=== PATIENT | male | born 1940 | race Native Hawaiian/Other Pacific Islander ===

== ENCOUNTER 2016-12-04 09:13 | Outpatient (CLI) | payer OTHER ==
[~2016-12-04 09:13] MED LIST: ASA LOW DOSE81 MG PO; CADUET10 MG/10 M OR; COZAAR100 MG PO; FORTAMET1000 MG PO; FORTAMET500 MG PO; GLIP5TAB65 PO; INSU100I2 SC; LEVO0.0529 PO; LEXAPRO10 MG PO; LIPITOR10 MG PO; METF500T PO; METFTAB PO; OMEPRAZOLE20 M1 OR; OMEPRAZOLE20 M1 PO
[2016-12-04 09:31] LABS: PLATELET COUNT 170 K/uL (142-355)
[2016-12-04 10:36] LABS: POTASSIUM 4.5 mmol/L (3.6-5.2)
[2016-12-15] MEDS ORDERED: LANTUS100 MG/ML SC (00:17)
[2016-12-15] MEDS ORDERED: HUMULIN R1 ML IJ (00:17)
== END 2016-12-04 22:57 | disposition home or self-care (01) ==
LOC: LABW 09:13
PROVIDERS: Internal Medicine
DX: E11.9 Type 2 diabetes mellitus without complications (principal)
CPT/HCPCS: 36415; 80053; 80061; 81000; 82043; 82570; 83036; 84443; 85027

== ENCOUNTER 2016-12-06 09:13 | Outpatient (CLI) | payer OTHER ==
[2016-12-15] MEDS ORDERED: HUMULIN R1 ML IJ (00:17)
[2016-12-15] MEDS ORDERED: LANTUS100 MG/ML SC (00:17)
== END 2016-12-06 19:12 | disposition home or self-care (01) ==
LOC: US 09:13
DX: N18.9 Chronic kidney disease, unspecified (principal)

== ENCOUNTER 2016-12-09 17:42 | Inpatient (IN) | payer OTHER ==
[~2016-12-09] VITALS: Ht 172.7 cm; Wt 93.6 kg
[2016-12-09 17:48] VITALS: BP 174/78; TEMP 98
[2016-12-09 18:16] LABS: PLATELET COUNT 231 K/uL (142-355)
[2016-12-09 18:30] LABS: POTASSIUM 4.3 mmol/L (3.6-5.2)
[2016-12-09 21:59] VITALS: BP 160/94; TEMP 97.7; Ht 172.7 cm; Wt 93.6 kg
[2016-12-09] MEDS ORDERED: HYDRALAZINE25 MG PO (22:24)
[2016-12-09] MEDS ORDERED: CARV12.5 PO (22:25)
[2016-12-09] MEDS ORDERED: GABA300C2 PO (22:25)
[2016-12-09] MEDS ORDERED: AMBIEN5 MG PO (22:26)
[2016-12-09] MEDS ORDERED: VALSARTAN320 MG PO (22:27)
[2016-12-09] MEDS ORDERED: UNITH DIRECT75 MCG PO (22:27)
[2016-12-09] MEDS ORDERED: CADUET10 MG/10 M PO (22:28)
[2016-12-09] MEDS ORDERED: EQ ASPIRIN325 M1 PO (22:29)
[2016-12-10 00:24] VITALS: BP 168/71; TEMP 97.8
[2016-12-10 04:00] VITALS: BP 160/63; TEMP 98.1
[2016-12-10 08:13] VITALS: BP 171/66; TEMP 98.7
[2016-12-10 09:32] LABS: PLATELET COUNT 191 K/uL (142-355)
[2016-12-10 09:41] LABS: POTASSIUM 4.6 mmol/L (3.6-5.2)
[2016-12-10 12:00] VITALS: BP 166/63; TEMP 98.1
[2016-12-10 16:00] VITALS: BP 142/51; TEMP 98.2
[2016-12-10 20:00] VITALS: BP 169/82; TEMP 97.9
[2016-12-11] VITALS (7 sets, daily range): BP systolic 129–194; BP diastolic 50–67; TEMP 97.6–98.1
[2016-12-11 09:36] LABS: PLATELET COUNT 189 K/uL (142-355)
[2016-12-12 01:03] LABS: POTASSIUM 4.9 mmol/L (3.6-5.2)
[2016-12-12 01:19] LABS: PLATELET COUNT 188 K/uL (142-355)
[2016-12-12 04:00] VITALS: BP 137/63; TEMP 98
[2016-12-12 08:00] VITALS: BP 168/68; TEMP 97.8
[2016-12-12 12:00] VITALS: BP 122/82; TEMP 97.8
[2016-12-15] MEDS ORDERED: LANTUS100 MG/ML SC (00:17)
[2016-12-15] MEDS ORDERED: HUMULIN R1 ML IJ (00:17)
== END 2016-12-12 15:25 | disposition home or self-care (01) | DRG 291 ==
LOC: ED 17:42 → MED/SURG 19:00
PROVIDERS: Emergency Medicine
DX: I50.1 Left ventricular failure, unspecified (principal); J18.0 Bronchopneumonia, unspecified organism; J90 Pleural effusion, not elsewhere classified; E11.9 Type 2 diabetes mellitus without complications; J44.9 Chronic obstructive pulmonary disease, unspecified
CPT/HCPCS: 36415; 36600; 80048; 80053; 82805; 82948; 83880; 85027; 87040; 93306; 94640; 94664; 94668; 94760; 96372; J0456; J0696; J1650; J1940; J2794; J2930; J3490

== ENCOUNTER 2016-12-23 10:41 | Emergency (ER) | payer OTHER ==
[~2016-12-23] VITALS: Ht 170.2 cm; Wt 91.6 kg
[~2016-12-23 10:41] MED LIST changes: +AMBIEN5 MG PO; +CADUET10 MG/10 M PO; +CARV12.5 PO; +EQ ASPIRIN325 M1 PO; +GABA300C2 PO; +HUMULIN R1 ML IJ; +HYDRALAZINE25 MG PO; +LANTUS100 MG/ML SC; +UNITH DIRECT75 MCG PO; +VALSARTAN320 MG PO
[2016-12-23 12:04] LABS: PLATELET COUNT 183 K/uL (142-355)
[2016-12-23 12:33] LABS: POTASSIUM 3.9 mmol/L (3.6-5.2); SODIUM 141 mmol/L (136-145)
[2016-12-23 16:11] VITALS: BP 185/79; TEMP 98.2
== END 2016-12-23 16:11 | disposition home or self-care (01) ==
LOC: ED 10:41
PROVIDERS: Emergency Medicine
DX: I10 Essential (primary) hypertension (principal)
CPT/HCPCS: 80048; 81000; 82550; 84484; 85027; 93005; 96365; 99284

== ENCOUNTER 2016-12-26 10:12 | Observation (INO) | payer OTHER ==
[~2016-12-26] VITALS: Ht 170.2 cm; Wt 91.3 kg
[2016-12-26 12:01] VITALS: BP 150/54; TEMP 97.6; Ht 170.2 cm; Wt 91.3 kg
[2016-12-26 13:33] LABS: PLATELET COUNT 184 K/uL (142-355)
[2016-12-26] MEDS ORDERED: FURO40TA93 PO (14:37)
[2016-12-26] MEDS ORDERED: POTA20TA4 PO (14:38)
[2016-12-26] MEDS ORDERED: AMLO2.5T PO (14:39)
[2016-12-26] MEDS ORDERED: GLIP10TA55 PO (14:40)
[2016-12-26 16:00] VITALS: BP 170/65; TEMP 98.1
[2016-12-26 20:00] VITALS: BP 144/61; TEMP 98.1
[2016-12-27] VITALS: BP 150/43; TEMP 97.8
[2016-12-27 04:00] VITALS: BP 138/66; BP 158/66; TEMP 98.1
[2016-12-27 04:48] LABS: POTASSIUM 4.3 mmol/L (3.6-5.2)
[2016-12-27 05:03] LABS: PLATELET COUNT 157 K/uL (142-355)
[2016-12-27 08:08] VITALS: BP 161/70; TEMP 97.9
[2016-12-27 12:00] VITALS: BP 165/72; TEMP 97.7
== END 2016-12-27 16:25 | disposition home or self-care (01) ==
LOC: MED/SURG 10:12
PROVIDERS: Emergency Medicine; ADMIT Internal Medicine
DX: E11.649 Type 2 diabetes mellitus with hypoglycemia without coma (principal); Z79.4 Long term (current) use of insulin; J44.9 Chronic obstructive pulmonary disease, unspecified; D72.828 Other elevated white blood cell count; E11.42 Type 2 diabetes mellitus with diabetic polyneuropathy; E03.8 Other specified hypothyroidism; K21.9 Gastro-esophageal reflux disease without esophagitis; M15.8 Other polyosteoarthritis
CPT/HCPCS: 36415; 36591; 80053; 81000; 82948; 83735; 83880; 85027; 93005; 94760; 96365; 96366; 96374; 96375; 99220; G0378; G0379; J1940; J7060

== ENCOUNTER 2017-01-25 09:20 | Outpatient (CLI) | payer OTHER ==
[~2017-01-25 09:20] MED LIST changes: +AMLO2.5T PO; +FURO40TA93 PO; +GLIP10TA55 PO; +POTA20TA4 PO
== END 2017-01-25 19:15 | disposition home or self-care (01) ==
LOC: RAD 09:20
DX: R13.10 Dysphagia, unspecified (principal); R13.12 Dysphagia, oropharyngeal phase

== ENCOUNTER 2017-01-29 08:18 | Outpatient (CLI) | payer OTHER ==
[~2017-01-29] VITALS: Ht 170.2 cm; Wt 88.5 kg
== END 2017-01-29 19:29 | disposition home or self-care (01) ==
LOC: NM 08:18
DX: I42.9 Cardiomyopathy, unspecified (principal); I10 Essential (primary) hypertension; E78.5 Hyperlipidemia, unspecified
CPT/HCPCS: A9500; J2785

== ENCOUNTER 2017-02-16 17:01 | Emergency (ER) | payer OTHER ==
[~2017-02-16] VITALS: Ht 170.2 cm; Wt 87.5 kg
[2017-02-16 21:10] LABS: PLATELET COUNT 168 K/uL (142-355)
[2017-02-16 21:50] LABS: POTASSIUM 4.6 mmol/L (3.6-5.2)
[2017-02-16 23:49] VITALS: BP 168/62; TEMP 98.1
== END 2017-02-16 23:51 | disposition home or self-care (01) ==
LOC: ED 17:01
PROVIDERS: Specialist
DX: M54.12 Radiculopathy, cervical region (principal); R00.8 Other abnormalities of heart beat
CPT/HCPCS: 36415; 80053; 81000; 82550; 84484; 85027; 93005; 99284

== ENCOUNTER 2017-06-04 06:05 | Emergency (ER) | payer OTHER ==
[~2017-06-04] VITALS: Ht 170.2 cm; Wt 88.9 kg
[2017-06-04 06:32] VITALS: BP 186/90; TEMP 98.3
== END 2017-06-04 06:33 | disposition left against medical advice (07) ==
LOC: ED 06:05
DX: I10 Essential (primary) hypertension (principal)
CPT/HCPCS: 99281

== ENCOUNTER 2017-06-04 07:37 | Emergency (ER) | payer OTHER ==
[~2017-06-04] VITALS: Ht 170.2 cm; Wt 88.5 kg
[2017-06-04 07:40] VITALS: BP 146/60; TEMP 98.4
== END 2017-06-04 08:00 | disposition home or self-care (01) ==
LOC: ED 07:37
DX: I10 Essential (primary) hypertension (principal)
CPT/HCPCS: 99281

== ENCOUNTER 2017-06-27 08:15 | Outpatient (CLI) | payer OTHER ==
[2017-06-27 08:50] LABS: PLATELET COUNT 188 K/uL (142-355)
[2017-06-27 09:15] LABS: POTASSIUM 4.6 mmol/L (3.6-5.2)
== END 2017-06-27 09:15 | disposition home or self-care (01) ==
LOC: LABW 08:15
PROVIDERS: Internal Medicine
DX: E11.9 Type 2 diabetes mellitus without complications (principal)
CPT/HCPCS: 36415; 80053; 80061; 81000; 82043; 82570; 83036; 84439; 84443; 85027

== ENCOUNTER 2017-10-07 16:40 | Outpatient (CLI) | payer OTHER ==
[2017-10-07 20:17] LABS: PLATELET COUNT 180 K/uL (142-355)
== END 2017-10-07 19:07 | disposition home or self-care (01) ==
LOC: LAB 16:40
PROVIDERS: Physician Assistant
DX: I50.9 Heart failure, unspecified (principal)
CPT/HCPCS: 80053; 83880; 85027

== ENCOUNTER 2017-10-21 09:43 | Outpatient (CLI) | payer OTHER | END 2017-10-21 10:45 | disposition home or self-care (01) | LOC: LABW 09:43 | PROVIDERS: Nurse Practitioner Adult Health | DX: E78.2 Mixed hyperlipidemia (principal); Z79.899 Other long term (current) drug therapy; Z51.81 Encounter for therapeutic drug level monitoring | CPT/HCPCS: 36415; 80061; 80076 ==

== ENCOUNTER 2017-10-22 14:19 | Observation (INO) | payer OTHER ==
[~2017-10-22] VITALS: Ht 172.7 cm; Wt 89.5 kg
[2017-10-22 14:24] VITALS: BP 178/68; TEMP 98.7
[2017-10-22 15:02] LABS: PLATELET COUNT 173 K/uL (142-355)
[2017-10-22 16:29] VITALS: BP 184/68
[2017-10-22 17:44] VITALS: BP 178/68; TEMP 97.7; Ht 172.7 cm; Wt 89.5 kg
[2017-10-22 20:00] VITALS: BP 186/70; TEMP 98
[2017-10-23] VITALS: BP 178/73; TEMP 98.4
[2017-10-23 04:00] VITALS: BP 172/77; TEMP 98.2
[2017-10-23 06:11] LABS: PLATELET COUNT 173 K/uL (142-355)
[2017-10-23 06:14] LABS: POTASSIUM 5.4 mmol/L (3.6-5.2)
[2017-10-23 08:00] VITALS: BP 180/83; TEMP 98
[2017-10-23 12:00] VITALS: BP 132/50; TEMP 98.4
[2017-10-23 16:00] VITALS: BP 135/60; BP 155/60; TEMP 98.3
[2017-10-23 20:00] VITALS: BP 166/70; TEMP 98.2
[2017-10-24] VITALS: BP 146/63; TEMP 98
[2017-10-24 04:00] VITALS: BP 161/69; TEMP 98.2
[2017-10-24 05:09] LABS: PLATELET COUNT 198 K/uL (142-355)
[2017-10-24 05:24] LABS: POTASSIUM 4.7 mmol/L (3.6-5.2)
[2017-10-24 08:00] VITALS: BP 168/80; TEMP 97.9
[2017-10-24 12:00] VITALS: BP 167/58; TEMP 98
[2017-10-24 16:00] VITALS: BP 135/54; TEMP 98.1
[2017-10-24 20:00] VITALS: BP 158/83; TEMP 98.1
[2017-10-25] VITALS: BP 137/52; TEMP 98.2
[2017-10-25 04:00] VITALS: BP 150/80; TEMP 97.7
[2017-10-25 05:51] LABS: PLATELET COUNT 190 K/uL (142-355)
[2017-10-25 06:14] LABS: POTASSIUM 4.5 mmol/L (3.6-5.2)
[2017-10-25 08:00] VITALS: BP 165/67; TEMP 98.2
--- NOTE | 2017-10-25 09:00 | NUR ---
DISCHARGE ORDERS RECEIVED. PRESCRIPTIONS CALLED IN TO [facility] AND FOLLOW APPOINTMENTS MADE. PATIENT WILL BE WAITING UNTIL THIS AFTERNOON FOR A RIDE HOME WHEN HIS SON GETS OFF WORK.
[2017-10-25 12:05] VITALS: BP 134/53; TEMP 98.2
--- NOTE | 2017-10-25 15:30 | NUR ---
PATIENT HAS SIGNED ALL DISCHARGE ORDERS. IV REMOVED, BANDAID APPLIED. PATIENT READY TO GO HOME AND AWAITING HIS SON TO COME AND TAKE HIM HOME.
[2017-10-25 15:53] VITALS: BP 155/52; TEMP 98.4
--- NOTE | 2017-10-25 17:00 | NUR ---
PATIENT ESCORTED TO HOSPITAL EXIT VIA WHEELCHAIR AND DISCHARGED HOME WITH SON IN STABLE CONDITION.
== END 2017-10-25 17:03 | disposition home or self-care (01) ==
LOC: ED 14:19 → MED/SURG 16:15
PROVIDERS: Emergency Medicine; ADMIT Internal Medicine
DX: J96.91 Respiratory failure, unspecified with hypoxia (principal); I50.9 Heart failure, unspecified; J16.8 Pneumonia due to other specified infectious organisms; J90 Pleural effusion, not elsewhere classified; E11.40 Type 2 diabetes mellitus with diabetic neuropathy, unspecified; J44.9 Chronic obstructive pulmonary disease, unspecified; Z79.4 Long term (current) use of insulin; I10 Essential (primary) hypertension; E87.5 Hyperkalemia; E83.41 Hypermagnesemia; E78.2 Mixed hyperlipidemia; Z79.899 Other long term (current) drug therapy; Z51.81 Encounter for therapeutic drug level monitoring
CPT/HCPCS: 36415; 36600; 80053; 80061; 80076; 81000; 82550; 82805; 82948; 83036; 83735; 83880; 84443; 84484; 85027; 85379; 87040; 93005; 93306; 94664; 94760; 96367; 96372; 96374; 96375; 99220; 99284; G0378; J0696; J1100; J1650; J1940; J1956; J2930; J3490

== ENCOUNTER 2017-10-30 10:16 | Outpatient (CLI) | payer OTHER ==
[2017-10-30 10:47] LABS: POTASSIUM 5.3 mmol/L (3.6-5.2)
== END 2017-10-30 11:20 | disposition home or self-care (01) ==
LOC: LABW 10:16
PROVIDERS: Nurse Practitioner Adult Health
DX: I10 Essential (primary) hypertension (principal); E11.9 Type 2 diabetes mellitus without complications
CPT/HCPCS: 36415; 80048

== ENCOUNTER 2018-01-09 15:56 | Outpatient (CLI) | payer OTHER ==
[2018-01-09 17:17] LABS: PLATELET COUNT 207 K/uL (142-355)
[2018-01-09 17:31] LABS: POTASSIUM 4.6 mmol/L (3.6-5.2)
== END 2018-01-09 17:00 | disposition home or self-care (01) ==
LOC: LABW 15:56
PROVIDERS: Internal Medicine
DX: E11.69 Type 2 diabetes mellitus with other specified complication (principal)
CPT/HCPCS: 36415; 80053; 80061; 82306; 82728; 83036; 83540; 83550; 83970; 84100; 85027

== ENCOUNTER 2018-02-23 09:52 | Emergency (ER) | payer OTHER ==
[~2018-02-23] VITALS: Ht 167.6 cm; Wt 89.8 kg
[2018-02-23 09:56] VITALS: BP 104/36; TEMP 97.5
[2018-02-23 10:43] LABS: PLATELET COUNT 144 K/uL (142-355)
[2018-02-23] MEDS ORDERED: PROTONIX20 MG PO (10:43)
[2018-02-23] MEDS ORDERED: GLIP10TA55 PO (10:55)
[2018-02-23] MEDS ORDERED: LABETALOL100 MG PO (10:56)
[2018-02-23 10:58] LABS: PARTIAL THROMBOPLASTIN TIME 27.9 SECONDS (24.5-33.6)
[2018-02-23 11:10] LABS: SODIUM 138 mmol/L (136-145)
[2018-02-23 11:17] LABS: POTASSIUM 6.7 mmol/L (3.6-5.2)
== END 2018-02-23 11:55 | disposition short-term general hospital (02) ==
LOC: ED 09:52
DX: R00.1 Bradycardia, unspecified (principal); I95.89 Other hypotension; N17.9 Acute kidney failure, unspecified; J44.9 Chronic obstructive pulmonary disease, unspecified; I50.9 Heart failure, unspecified; I48.91 Unspecified atrial fibrillation; I44.7 Left bundle-branch block, unspecified
CPT/HCPCS: 80053; 82550; 83880; 84443; 84484; 85027; 85610; 85730; 93005; 96361; 96365; 96375; 99284; J0461; J1265

== ENCOUNTER 2018-02-23 11:57 | Outpatient (CLI) | payer OTHER ==
[~2018-02-23 11:57] MED LIST changes: +LABETALOL100 MG PO; +PROTONIX20 MG PO
== END 2018-02-23 13:18 | disposition short-term general hospital (02) ==
LOC: AMB 11:57
DX: R00.1 Bradycardia, unspecified (principal); I95.89 Other hypotension; N17.9 Acute kidney failure, unspecified; J44.9 Chronic obstructive pulmonary disease, unspecified; I50.9 Heart failure, unspecified; I48.91 Unspecified atrial fibrillation; I44.7 Left bundle-branch block, unspecified
CPT/HCPCS: A0425; A0427

== ENCOUNTER 2018-03-12 19:17 | Inpatient (IN) | payer OTHER ==
[~2018-03-12] VITALS: Ht 172.7 cm; Wt 88.1 kg
[2018-03-12 19:20] VITALS: BP 167/57; TEMP 98.6
[2018-03-12 19:30] VITALS: BP 169/59
[2018-03-12 19:45] VITALS: BP 159/66
[2018-03-12 20:00] VITALS: BP 163/61
[2018-03-12 20:09] LABS: PLATELET COUNT 233 K/uL (142-355)
[2018-03-12 20:28] LABS: POTASSIUM 5.1 mmol/L (3.6-5.2)
[2018-03-12 20:30] VITALS: BP 154/62
[2018-03-12 21:00] VITALS: BP 159/65
[2018-03-13] VITALS (12 sets, daily range): BP systolic 151–181; BP diastolic 57–72; TEMP 97.2–98.2; Ht 172.7 cm; Wt 88.1 kg
[2018-03-13 08:16] LABS: PLATELET COUNT 218 K/uL (142-355)
[2018-03-13 08:35] LABS: POTASSIUM 7.1 mmol/L (3.6-5.2)
== END 2018-03-13 14:30 | disposition short-term general hospital (02) | DRG 189 ==
LOC: ED 19:17 → MED/SURG 20:20 → ED 20:20 → MED/SURG 21:10 → ICU 21:10 → MED/SURG 21:10 → ICU 03-13 14:30
PROVIDERS: ADMIT Internal Medicine
DX: J96.00 Acute respiratory failure, unspecified whether with hypoxia or hypercapnia (principal); I50.31 Acute diastolic (congestive) heart failure; J44.1 Chronic obstructive pulmonary disease with (acute) exacerbation; I13.2 Hypertensive heart and chronic kidney disease with heart failure and with stage 5 chronic kidney disease, or end stage renal disease; N18.5 Chronic kidney disease, stage 5; E03.8 Other specified hypothyroidism; E11.22 Type 2 diabetes mellitus with diabetic chronic kidney disease
CPT/HCPCS: 36415; 36600; 80053; 81000; 82550; 82805; 82962; 83036; 83880; 84484; 85027; 85379; 87070; 87205; 90732; 93005; 94640; 94664; 94760; 99283; J0456; J0610; J0696; J1650; J1815; J1940; J2270; J2930; J3490; J7060

== ENCOUNTER 2018-03-13 14:34 | Outpatient (CLI) | payer OTHER | END 2018-03-13 15:45 | disposition short-term general hospital (02) | LOC: AMB 14:34 | DX: J96.00 Acute respiratory failure, unspecified whether with hypoxia or hypercapnia (principal); I50.31 Acute diastolic (congestive) heart failure; J44.1 Chronic obstructive pulmonary disease with (acute) exacerbation; I13.2 Hypertensive heart and chronic kidney disease with heart failure and with stage 5 chronic kidney disease, or end stage renal disease; N18.5 Chronic kidney disease, stage 5; E03.8 Other specified hypothyroidism; E11.22 Type 2 diabetes mellitus with diabetic chronic kidney disease | CPT/HCPCS: A0425; A0427 ==

== ENCOUNTER 2018-03-31 15:27 | Outpatient (CLI) | payer OTHER | END 2018-03-31 21:27 | disposition home or self-care (01) | LOC: RAD 15:27 | DX: J44.9 Chronic obstructive pulmonary disease, unspecified (principal); R09.02 Hypoxemia ==

== ENCOUNTER 2018-04-01 15:52 | Emergency (ER) | payer OTHER ==
[~2018-04-01] VITALS: Ht 162.6 cm; Wt 81.2 kg
[2018-04-01 16:22] LABS: PLATELET COUNT 222 K/uL (142-355)
[2018-04-01 16:50] LABS: POTASSIUM 4.1 mmol/L (3.6-5.2)
[2018-04-01 20:58] VITALS: BP 139/59; TEMP 97
== END 2018-04-01 19:28 | disposition other institution (70) ==
LOC: ED 15:52
DX: J16.8 Pneumonia due to other specified infectious organisms (principal); N18.6 End stage renal disease; Z99.2 Dependence on renal dialysis
CPT/HCPCS: 36415; 36600; 80053; 82805; 83605; 84484; 85027; 93005; 99284

== ENCOUNTER 2018-04-01 21:38 | Outpatient (CLI) | payer OTHER | END 2018-04-01 22:56 | disposition short-term general hospital (02) | LOC: AMB 21:38 | DX: J16.8 Pneumonia due to other specified infectious organisms (principal); N18.6 End stage renal disease; Z99.2 Dependence on renal dialysis | CPT/HCPCS: A0425; A0427 ==

== ENCOUNTER → 2018-04-21 | Outpatient (CLI) | payer OTHER | END | disposition short-term general hospital (02) | LOC: AMB 17:51 | DX: R53.1 Weakness (principal) | CPT/HCPCS: A0425; A0427 ==

== ENCOUNTER 2018-06-17 13:36 | Outpatient (CLI) | payer OTHER | END 2018-06-17 13:40 | disposition short-term general hospital (02) | LOC: AMB 13:36 | DX: R06.02 Shortness of breath (principal) | CPT/HCPCS: A0425; A0429 ==

== ENCOUNTER 2018-06-17 13:40 | Emergency (ER) | payer OTHER ==
[2018-06-17 14:14] LABS: PLATELET COUNT 180 K/uL (142-355)
[2018-06-17 14:31] LABS: POTASSIUM 4.9 mmol/L (3.6-5.2); SODIUM 137 mmol/L (136-145)
[2018-06-17 19:40] VITALS: TEMP 97.2
[2018-06-17 21:14] VITALS: BP 136/40
== END 2018-06-17 21:18 | disposition short-term general hospital (02) ==
LOC: ED 13:42
PROVIDERS: Family Medicine
DX: R00.1 Bradycardia, unspecified (principal); N18.6 End stage renal disease
CPT/HCPCS: 36415; 80053; 84484; 85027; 93005; 99285

== ENCOUNTER 2018-06-24 08:54 | Outpatient (CLI) | payer OTHER ==
[2018-06-24] MEDS ORDERED: NAMZARIC 28-101 CAP PO (09:35)
[2018-06-24] MEDS ORDERED: UNITH DIRECT75 MCG PO (09:36)
[2018-06-24] MEDS ORDERED: CYCL10TA35 PO (09:38)
[2018-06-24] MEDS ORDERED: AMLODIPINE BESYLATE PO (09:39)
[2018-06-24] MEDS ORDERED: HYDRALAZINE50 MG PO (09:40)
[2018-06-24] MEDS ORDERED: LOSA50TA PO (09:40)
[2018-06-24] MEDS ORDERED: ENDOCET1 TAB PO (09:42)
== END 2018-06-24 09:21 | disposition short-term general hospital (02) ==
LOC: AMB 08:54
DX: J44.1 Chronic obstructive pulmonary disease with (acute) exacerbation (principal)
CPT/HCPCS: A0425; A0427

== ENCOUNTER 2018-06-24 09:22 | Emergency (ER) | payer OTHER ==
[~2018-06-24] VITALS: Ht 170.2 cm; Wt 84.8 kg
[2018-06-24] MEDS ORDERED: NAMZARIC 28-101 CAP PO (09:35)
[2018-06-24] MEDS ORDERED: UNITH DIRECT75 MCG PO (09:36)
[2018-06-24] MEDS ORDERED: CYCL10TA35 PO (09:38)
[2018-06-24] MEDS ORDERED: AMLODIPINE BESYLATE PO (09:39)
[2018-06-24] MEDS ORDERED: HYDRALAZINE50 MG PO (09:40)
[2018-06-24] MEDS ORDERED: LOSA50TA PO (09:40)
[2018-06-24] MEDS ORDERED: ENDOCET1 TAB PO (09:42)
[2018-06-24 10:04] LABS: PLATELET COUNT 207 K/uL (142-355)
[2018-06-24 10:21] LABS: POTASSIUM 5.2 mmol/L (3.6-5.2)
[2018-06-24 10:44] VITALS: BP 150/78; TEMP 98.2
== END 2018-06-24 11:00 | disposition home or self-care (01) ==
LOC: ED 09:28
DX: I50.9 Heart failure, unspecified (principal); N18.6 End stage renal disease; Z99.2 Dependence on renal dialysis
CPT/HCPCS: 80053; 85027; 93005; 96374; 96375; 99284; J1940; J2270

== ENCOUNTER 2018-11-07 15:09 | Emergency (ER) | payer OTHER ==
[~2018-11-07] VITALS: Ht 170.2 cm; Wt 84.8 kg
[~2018-11-07 15:09] MED LIST changes: +AMLODIPINE BESYLATE PO; +CYCL10TA35 PO; +ENDOCET1 TAB PO; +HYDRALAZINE50 MG PO; +LOSA50TA PO; +NAMZARIC 28-101 CAP PO
[2018-11-07 16:12] LABS: PLATELET COUNT 249 K/uL (142-355)
[2018-11-07 16:26] LABS: PARTIAL THROMBOPLASTIN TIME 25.8 SECONDS (24.5-33.6)
[2018-11-07 16:34] LABS: POTASSIUM 3.6 mmol/L (3.6-5.2)
[2018-11-07 20:42] VITALS: BP 166/66; TEMP 98.7
== END 2018-11-07 20:44 ==
LOC: ED 15:09
PROVIDERS: Emergency Medicine
DX: R07.89 Other chest pain (principal)
CPT/HCPCS: 80053; 82550; 84484; 85027; 85379; 85610; 85730; 93005; 99284